=== PATIENT | male | born 1950 | race Caucasian/White ===

== ENCOUNTER 2017-11-29 14:46 | Emergency (ER) | payer BC ==
[2017-11-29 15:17] VITALS: BP 158/85
[2017-11-29] MEDS ORDERED: HYDROcodone/ACETAMIN 5-325 MG* 1 TAB PO ONE (15:41)
--- NOTE | 2017-11-29 15:46 | UC ---
General HPI - HPI Summary HPI Summary: Patient presents complaining of pain from trigeminal neuralgia. States he's had trigeminal neuralgia for approximately 5 years. He is prescribed carbamazepine 300 mg tablets 2, twice a day for pain control; however, he's been having increasing bouts of the sharp shooting pains that are lasting longer. As a result, he took 700 mg of his medication at 4:15 another 100 mg at noon and 300 mg at 1:30. He's wondering if we can make adjustments so that he can take more. He does have follow-up with his primary care in the morning. He does report that this is his typical pain consistent with trigeminal neuralgia. he denies having any associated fever, injury or pain inside his head. He has no numbness or weakness to his arms or legs and no facial droop. He has no hearing loss. He does take Celebrex daily for osteoarthritis as well. - History of Current Complaint Chief Complaint: UCGeneralIllness Stated Complaint: FACIAL PAIN Time Seen by Provider: 11/29/17 15:18 Hx Obtained From: Patient, Family/Ground Hand Pain Intensity: 10 Aggravating: seasonal, cold, wind Alleviating: briefly by his carbamazepine Associated Signs & Symptoms: Negative: Fever, Headache - Allergy/Home Medications Allergies/Adverse Reactions: Allergies Allergy/AdvReac Type Severity Reaction Status Date / Time No Known Allergies Allergy Verified 11/29/17 15:19 Home Medications: Home Medications Enalapril TAB* [Vasotec TAB*] 5 mg PO DAILY 11/29/17 [History Confirmed 11/29/17 ] Meloxicam 15 mg PO DAILY 11/29/17 [History Confirmed 11/29/17] carBAMazepine ER TAB(*) [TEGretol Xr TAB(*)] 100 mg PO DAILY 11/29/17 [History Confirmed 11/29/17] carBAMazepine ER TAB(*) [TEGretol Xr TAB(*)] 300 mg PO BID 11/29/17 [History Confirmed 11/29/17] PMH/Surg Hx/FS Hx/Imm Hx - Additional Past Medical History Additional PMH: OA. trigeminal neuralgia Cardiovascular History: Hypertension - Surgical History Surgical History: Yes Surgery Procedure, Year, and Place: Hernia surgery 1999 - Family History Known Family History: Positive: None - Social History Occupation: Employed Full-time Lives: With Family Alcohol Use: Daily Substance Use Type: None Smoking Status (MU): Never Smoked Tobacco - Immunization History Vaccination Up to Date: Yes Review of Systems Constitutional: Negative Skin: Negative Eyes: Negative ENT: Negative Respiratory: Negative Cardiovascular: Negative Gastrointestinal: Negative Genitourinary: Negative Motor: Negative Neurovascular: Negative Musculoskeletal: Arthralgia - chronic Neurological: Negative Psychological: Other - L facial pains Is Patient Immunocompromised?: No All Other Systems Reviewed And Are Negative: Yes Physical Exam Triage Information Reviewed: Yes Appearance: Well-Appearing Vital Signs: Initial Vital Signs Temp 98.7 F 11/29/17 14:54 Pulse 82 11/29/17 14:54 Resp 17 11/29/17 14:54 BP 158/85 11/29/17 14:54 Pulse Ox 100 11/29/17 14:54 Vital Signs Reviewed: Yes Eyes: Positive: Conjunctiva Clear, Other: - PERRL, EOMI ENT: Positive: Pharynx normal, TMs normal. Negative: Nasal congestion, Nasal drainage Neck: Positive: Supple, Nontender, No Lymphadenopathy Respiratory: Positive: Lungs clear, Normal breath sounds Cardiovascular: Positive: RRR, No Murmur Abdomen Description: Positive: Nontender, No Organomegaly, Soft Bowel Sounds: Positive: Present Musculoskeletal: Positive: ROM Intact Neurological: Positive: Other: - A&O x3 , CN 2-12 grossly intact. 5/5 strength and 2+ reflexes x4. Steady gait. Psychological: Positive: Normal Response To Family, Age Appropriate Behavior Skin Exam: Normal Course/Dx - Course Course Of Treatment: normal exam. hx c/w trigeminal neuralgia. pt advised to adhere to hte dosing as directed by his pcp for the carbamazepine to avoid side effects. he is on celebrex. I will add a norco here and 1 to go home for prn use in 6-8 hours until he f/u with his pcp in the am - Differential Dx - Multi-Symptom Provider Diagnoses: trgeminal neuralgia Discharge - Sign-Out/Discharge Documenting (check all that apply): Patient Departure - Discharge Plan Condition: Stable Disposition: HOME Patient Education Materials: Trigeminal Neuralgia (ED) Forms: *Work Release Referrals: Evelyn Fung MD [Primary Care Provider] - 1 Day Additional Instructions: FOLLOW UP DR FUNG IN AM SCHEDULED. TAKE THE NORCO IN 6-8 HOURS NEEDED FOR PAIN(BETWEEN 10P AND 12AM). TAKE YOUR HOME MEDICATIONS DIRECTED BY DR FUNG. - Billing Disposition and Condition Condition: STABLE Disposition: Home Attestation Statement User Type: Provider - I was available for consult. This patient was seen by the VANES[facility]. The patient was not presented to, seen by, or examined by me. -Kailey
== END 2017-11-29 15:57 | disposition home or self-care (01) ==
LOC: UCCORT 14:46
DX: G50.0 Trigeminal neuralgia (principal); I10 Essential (primary) hypertension
CPT/HCPCS: 99202; G0463